=== PATIENT | male | born 1995 | race Two or more races ===

== ENCOUNTER 2018-07-22 05:08 | Emergency (ER) | payer MEDICAID, OTHER ==
--- NOTE | 2018-07-22 05:21 | ED ---
Lower Extremity - HPI Summary HPI Summary: Pt is a 23 y/o male who presents to the ED s/p ankle injury. Last night he was playing basketball and landed incorrectly on his left ankle after jumping. He reports twisting his ankle. Pt continued to play basketball after this. He now c /o increasing pain with ambulating and swelling to his left ankle. Pain is currently rated an 8/10 in severity and is non-radiating. He denies any numbness. He denies taking any OTC medication for his pain. Pt has a hx of prior left ankle fracture. - History of Current Complaint Chief Complaint: EDExtremityLower Stated Complaint: "LEFT FOOT INJURY, 10 OUT OF 10 PAIN" PER PT Time Seen by Provider: 07/22/18 05:17 Hx Obtained From: Patient Mechanism Of Injury: Twisted Onset of Pain: Immediate Onset/Duration: Days - Last night Severity Currently: Severe Pain Intensity: 8 Pain Scale Used: 0-10 Numeric Timing: Constant Location: Is Discrete @ - left ankle Aggravating Factor(s): Ambulation Related History: Other - while playing basketball - Allergies/Home Medications Allergies/Adverse Reactions: Allergies Allergy/AdvReac Type Severity Reaction Status Date / Time No Known Allergies Allergy Verified 07/22/18 05:11 PMH/Surg Hx/FS Hx/Imm Hx Endocrine/Hematology History: Denies: Hx Diabetes Cardiovascular History: Denies: Hx Hypertension, Hx Pacemaker/ICD History: Denies: Hx Renal Disease Musculoskeletal History: Reports: Hx of Fracture(s) - left ankle Sensory History: Denies: Hx Hearing Aid Psychiatric History: Denies: Hx Panic Disorder - Surgical History Surgery Procedure, Year, and Place: DENIES Infectious Disease History: No Infectious Disease History: Denies: Traveled Outside the [place] in Last 30 Days - Family History Known Family History: Positive: Other - HLD - Social History Alcohol Use: Occasionally Hx Substance Use: Yes Substance Use Type: Reports: Marijuana Hx Tobacco Use: No Smoking Status (MU): Never Smoked Tobacco Review of Systems Positive: Arthralgia - left ankle, Edema - left ankle Negative: Numbness All Other Systems Reviewed And Are Negative: Yes Physical Exam - Summary Physical Exam Summary: Appearance: well appearing, no pain distress Skin: warm, dry, reflects adequate perfusion Head/face: normal Eyes: EOMI, ALISON ENT: mucous membranes moist Neck: supple, non-tender Respiratory: CTA, breath sounds present Cardiovascular: RRR, pulses symmetrical Abdomen: non-tender, soft Bowel Sounds: present Musculoskeletal: strength/ROM intact, anterior talofibular tenderness, no malleolar tenderness, no swelling of left ankle Neuro: normal, sensory motor intact, A&Ox3 Triage Information Reviewed: Yes Vital Signs On Initial Exam: Initial Vitals Temp Pulse Resp BP Pulse Ox 97.6 F 71 16 136/78 98 07/22/18 05:10 07/22/18 05:10 07/22/18 05:10 07/22/18 05:10 07/22/18 05:10 Vital Signs Reviewed: Yes Diagnostics - Vital Signs Vital Signs Temp Pulse Resp BP Pulse Ox 07/22/18 05:10 97.6 F 71 16 136/78 98 - Laboratory Lab Statement: Any lab studies that have been ordered have been reviewed, and results considered in the medical decision making process. - Radiology Ankle XR Radiology Interpretation Completed By: ED Physician Summary of Radiographic Findings: No fracture. Pending official radiology report. Lower Extremity Course/Dx - Course Course Of Treatment: Nurse's notes reviewed. Patient was ambulatory at time of injury and here in the ER. X-rays are negative. Tenderness all at the anterior talofibular ligaments. Butch wrap applied. Patient wished to have crutches to support a flat-footed gait. - Diagnoses Differential Diagnosis/HQI/PQRI: Positive: Fracture (Closed), Sprain Provider Diagnoses: First degree ankle sprain Discharge - Sign-Out/Discharge Documenting (check all that apply): Patient Departure - Discharge Patient Received Moderate/Deep Sedation with Procedure: No - Discharge Plan Condition: Improved Disposition: HOME Prescriptions: Ibuprofen [Ibu] 600 mg PO TID PRN #30 tablet PRN Reason: Pain Patient Education Materials: Ankle Sprain (ED) Referrals: Non Staff,Doctor [Medical Doctor] - Additional Instructions: Rest, ice, Butch wrap for comfort and stability. Do range of motion exercises every hour with your foot and ankle. Return to sport as tolerated but wear and ankle supports her brace under your shoe. Follow up with [facility] as needed. - Billing Disposition and Condition Condition: IMPROVED Disposition: Home - Attestation Statements Document Initiated by Scribe: Yes Documenting Scribe: Sharee Fontenot Provider For Whom Scribe is Documenting (Include Credential): Rufus Escobar MD Scribe Attestation: I, Sharee Fontenot, scribed for Rufus Escobar MD on 07/22/18 at 0636. Scribe Documentation Reviewed: Yes Provider Attestation: The documentation as recorded by the scribe, Sharee Fontenot accurately reflects the service I personally performed and the decisions made by me, Rufus Escobar MD Status of Scribe Document: Viewed
[2018-07-22] MEDS ORDERED: Ibuprofen TAB* 600 MG PO ONE (05:35)
[2018-07-22 06:20] VITALS: BP 0/0
== END 2018-07-22 06:15 | disposition home or self-care (01) ==
LOC: ED 05:08
DX: S93.402A Sprain of unspecified ligament of left ankle, initial encounter (principal); X50.1XXA Overexertion from prolonged static or awkward postures, initial encounter; Y93.67 Activity, basketball; Y92.310 Basketball court as the place of occurrence of the external cause
CPT/HCPCS: 99282; A9270-GY

== ENCOUNTER 2018-08-28 23:51 | Emergency (ER) | payer MEDICAID ==
[2018-08-29] MEDS ORDERED: oxyCODONE TAB* 5 MG TAB PO ONE (01:15)
[2018-08-29] MEDS ORDERED: Acetaminophen TAB* 325 MG PO ONE (01:18)
[2018-08-29] MEDS ORDERED: Ibuprofen TAB* 600 MG PO ONE (01:18)
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
[2018-08-29 03:09] VITALS: BP 110/64
== END 2018-08-29 03:07 | disposition home or self-care (01) ==
LOC: ED 23:51
DX: S06.0X0A Concussion without loss of consciousness, initial encounter (principal); S02.2XXA Fracture of nasal bones, initial encounter for closed fracture; S00.91XA Abrasion of unspecified part of head, initial encounter; S00.93XA Contusion of unspecified part of head, initial encounter; Y04.0XXA Assault by unarmed brawl or fight, initial encounter; Y92.9 Unspecified place or not applicable
CPT/HCPCS: 70486; 99283; A9270-GY

== ENCOUNTER 2018-09-06 06:48 | Day surgery (SDC) | payer MEDICAID ==
[~2018-09-06 06:48] MED LIST: Buffered Lidocaine 1% SYRIN* 1 ML/SYRINGE INTRADERM ONE; Famotidine IV* 10 MG/ML 2 ML (20 mg) IV ONE; Lactated Ringers 1000 ML Bag* 1,000 ML IV SCH
[2018-09-06] MEDS ORDERED: Buffered Lidocaine 1% SYRIN* 1 ML/SYRINGE INTRADERM ONE (07:01)
[2018-09-06] MEDS ORDERED: Famotidine IV* 10 MG/ML 2 ML (20 mg) ONE (07:01)
[2018-09-06] MEDS ORDERED: fentaNYL* 50 MCG/ML 2 ML VIAL (100 MCG VIAL) ONE (08:32)
[2018-09-06] MEDS ORDERED: Midazolam* 1 MG/ML 5 ML VIAL (5 MG) ONE (08:32)
[2018-09-06] MEDS ORDERED: Propofol* 10 MG/ML 20 ML BTL ONE (08:32)
[2018-09-06] MEDS ORDERED: Ketorolac INJ* 30 MG/ML 1 ML VIAL ONE (08:32)
[2018-09-06] MEDS ORDERED: Dexamethasone IV* 4 MG/ML 1 ML (4 MG) ONE (08:32)
[2018-09-06] MEDS ORDERED: Ondansetron INJ* 2 MG/ML VIAL ONE (08:32)
[2018-09-06] MEDS ORDERED: Lidocaine 2% MPF* 2 ML VIAL ONE (08:32)
[2018-09-06] MEDS ORDERED: Oxymetazoline 0.05% NASAL SPR* 15 ML BTL ONE (08:34)
[2018-09-06] MEDS ORDERED: Lidocaine 4% TOPICAL* 50 ML TOP.SOLN ONE (08:34)
[2018-09-06] MEDS ORDERED: Naloxone* 0.4 MG/ML 1 ML VIAL IV PRN (08:40)
[2018-09-06] MEDS ORDERED: oxyCODONE/Acetamin 5/325 MG* TAB PO PRN (08:40)
[2018-09-06] MEDS ORDERED: Ondansetron INJ* 2 MG/ML VIAL IV PRN (08:40)
[2018-09-06] MEDS ORDERED: fentaNYL* 50 MCG/ML 2 ML VIAL (100 MCG VIAL) IV PRN (08:40)
[2018-09-06 09:42] VITALS: BP 137/92
--- NOTE | 2018-09-06 10:47 | OP ---
OPERATIVE REPORT: DATE OF OPERATION: 09/06/18 DATE OF : [birth year] SURGEON: Sergio Giordano MD. RIPSAW GRADER: None. ANESTHESIA: General. PRE-OP DIAGNOSIS: Nasal fracture. POST-OP DIAGNOSIS: Nasal fracture. OPERATIVE PROCEDURE: Closed reduction of nasal fracture. INDICATIONS: This is a 23-year-old male who presents for elective closed reduction of nasal fracture which occurred about a week ago. FINDINGS: There is rightward displacement of the nasal dorsum with palpable depression of the left n tong bone and lateral step-off on the right. DESCRIPTION OF PROCEDURE: The patient was brought to the operating room. Anesthesia was induced and LMA was placed. The patient was draped and time-out was performed. Afrin and lidocaine-soaked pledg ets were placed into both nasal cavities. The procedure was then begun. The external nose was palpa mima. Manual pressure was used to reduce the right nasal bone which had been laterally displaced and a nasal elevator was used to laterally elevate the left nasal bone back into a normal reduced positio n. The nose seemed to hold position well and so a base layer of Steri-Strips was placed followed by a Thermoplast splint and additional Steri- Strips. Mastisol was used as well for additional adhesive . The patient was then returned to the care of the anesthesiologist and delivered to the PACU in sta ble condition. [id number]/[facility] #: [id number]
== END 2018-09-06 10:03 | disposition home or self-care (01) ==
LOC: OR 06:48
PROVIDERS: ATTEND Otolaryngology
DX: S02.2XXA Fracture of nasal bones, initial encounter for closed fracture (principal); Y04.0XXA Assault by unarmed brawl or fight, initial encounter; Y92.9 Unspecified place or not applicable
CPT/HCPCS: A9270-GY; J1100; J1885; J2250; J2405; J2704; J3010